=== PATIENT | female | born 1945 | race Caucasian/White ===

== ENCOUNTER 2016-06-08 07:05 | Day surgery (SDC) | payer MEDICARE, OTHER ==
[~2016-06-08] VITALS: Ht 157.5 cm; Wt 59.1 kg
[~2016-06-08 07:05] MED LIST: ANTI1COM3 PO; CALC-786 PO; CETI10CA PO; CLOB15OI TOP; ESTR10TA VG; FEXO1TAB7 PO; FOL1 PO; HYDR25TA67 PO; Lactated Ringer's 1,000 ML IV ONE; METHOTREX PO; MULT-885 PO; MYCO500T3 PO; PRED50TA PO; ZAN150T PO
[2016-06-08] MEDS ORDERED: fentaNYL-PF 50 mCg/mL 2 mL Inj ONE (07:06)
[2016-06-08] MEDS ORDERED: Propofol 10,000 mCg/mL 20 mL Inj ONE (07:06)
--- NOTE | 2016-06-08 07:07 | PCM.HPANE ---
Patient Data Surgeon Admitting Provider: Attending Provider:Huan Cabrera MD Primary Care Physician:Angelina West MD Other Provider:[facility] Anesthesia Reason for Visit Lower Gi Bleeding Ht/WT & BMI Body Mass Index Allergies Coded Allergies: Contrast Media (Verified Allergy, Severe, INTENSE PAIN , 06/26/12) amoxicillin (Verified Allergy, Severe, SEVERE RASH - TOTAL BODY, 06/26/12) aspirin (Verified Allergy, Severe, NOSE BLEEDS AND BRUISING ON A LOW DOSE EVEN, 06/26/12) indomethacin (Verified Allergy, Severe, RASH, 06/26/12) indomethacin sodium (Verified Allergy, Severe, RASH, 06/26/12) Sulfa (Sulfonamide Antibiotics) (Verified Allergy, Mild, 06/07/16) cephalexin (Verified Allergy, Mild, 06/07/16) Past Anesthesia History Anesthesia History: Denies:: Abnormal Airway, Anesthesia Reactions, Difficult Intubation, Fam Anesthesia Reaction, Fam Malignant Hypertherm, Malignant Hyperthermia Diabetes History Hx Diabetes?: No MRSA MRSA: No Medications Reported Medications Mycophenolate Mofetil 500 Mg Tablet1,000 Mg PO BID 06/07/16 Estradiol (Vagifem)10 Mcg [id number] Mcg VG three times per week 06/07/16 Clobetasol-Expunged Drug, Do Not Renew! (Temovate 0.05%-Expunged Drug, Do Not Renew!)15 Gm Tube1 Appl TOP BID #15 GM APPLY TO AFFECTED AREA 07/11/12 Mu-Vits-Min Th/Lycopene/Lutein (Centrum Silver Tablet)1 Each Tablet1 Each PO DAILY 06/26/12 Calcium Carb & Cit/Vitamin D3 (Citracal + D Er Tablet)1 Each Tablet.er1 Each PO BID 06/26/12 hyDROXyzine-Expunged Drug, Do Not Renew! 25 Mg [id number] Mg PO Q6H 06/26/12 Discontinued Reported Medications Cetirizine HCl (Zyrtec)10 Mg [id number] Mg PO HS #30 CAPSULE Ref 0 06/07/16 Fexofenadine/Pseudoephedrine ER (Suzan-D 24 Hour)1 Each Tablet1 Tablet PO DAILY PRN For Congestion 06/07/16 Ranitidine 150 MG Tablet (Zantac 150 MG Tablet)150 Mg Tab1 Tab PO BID 06/26/12 Antiox#12/Om3/Dha/Epa/Lut/Zean (Macular Health Combo Pack)1 Each Combo..pkg2 Each PO DAILY 06/26/12 MethoTREXate-Expunged Drug, Do Not Renew! (RheumaTREX-Expunged Drug, Do Not Renew!)2.5 Mg Tablet2.5 Mg PO WEEKLY 06/26/12 Folic Acid-Expunged Drug, Do Not Renew! 1 Mg Tablet1 Mg PO DAILY #30 TAB 06/26/12 PredniSONE-Expunged Drug, Do Not Renew! 50 Mg Pnspjx77 Mg PO DAILY 06/26/12 History HEENT History: Denies:: Abnormal Airway Difficult Intubation Dysphagia Hearing Problem Hx of Heart Problems?: No Hx of Respiratory Problem?: No Neurological History: Denies:: CVA Hx of GI Problems?: Yes Gastrointestinal History: Denies:: Cirrhosis Diverticulitis Gastroesphageal Reflux Hiatal Hernia Rectal Bleeding Musculoskeletal History: Denies:: Joint Replacement Psycho Social History: Denies:: Anxiety Hx Depression Hx Surgeries?: Yes (R/L ROTATOR CUFF, HYSTERECTOMY) Hx Any Other Health Problems?: Yes Hx Diabetes: No Hx Alcohol Use: Yes (1-2 PER DAY) Stop/Bang ABRIL Risk Assessment: Low Risk, <3 Yes Risk Assessment Category Category 1A: Patient has history of documented sleep apnea, and HAS NOT received any narcotic, sedative or anesthesia administration during this stay. Category 1B: Patient has history of documented sleep apnea, and HAS received any narcotic , sedative or anesthesia administration during this stay Category 2: Patient has SUSPECTED Obstructive Sleep Apnea, and HAS received any narcotic , sedative or anesthesia administration during this stay. Category 3: Patient has SUSPECTED Obstructive Sleep Apnea and HAS NOT received narcotic, sedative or anesthesia administration during this stay. Category 4: Outpatient in Procedural Areas with known sleep apnea or who screen positive for High Risk via the STOP/BANG questionnaire. Exam Exam General Appearance: Alert, Oriented X3, Cooperative, No Acute Distress HEENT/AIRWAY: MP 2 Lungs: Clear to Auscultation, Normal Air Movement Heart: Exam Unremarkable, Regular Rate/Rhythm, No Murmurs/Rubs/Gallops Plan Impression Patient chart reviewed, patient interviewed and anesthestic plan with risks, benefits, and alternatives discussed, and informed consent obtained. ASA Physical Status: ASA2 Mod Systemic Disease Anesthetic Plan: MAC Bene/Risks/Altern/Consents: Yes HP Complete Prior to Induction: Yes Erich Dominguez MD Jun 08, 2016 07:07
[2016-06-08 07:46] VITALS: BP 128/79; RESP 12; O2SAT 95
[2016-06-08] MEDS ORDERED: Lactated Ringer's 1,000 ML IV SCH (08:20)
[2016-06-08] MEDS ORDERED: MetoCLOpramide 5 mg/mL 2 mL Inj IVPUSH PRN (08:20)
[2016-06-08] MEDS ORDERED: Ondansetron 2 mg/mL 2 mL Inj IVPUSH PRN (08:20)
--- NOTE | 2016-06-08 08:20 | PCM.ANEP1 ---
Post Anesthesia Phase 1 PACU Phase 1 Assessment Vital Signs Vital Signs Date Time Temp Pulse Resp B/P Pulse Ox O2 Delivery O2 Flow Rate FiO2 06/08/16 07:46 36.5 12 128/79 95 Room Air Anesthetic Administered: MAC Level of Alertness: Awake, talking TAVERA's with Equal Strength: Yes Pain: No Nausea or Vomiting: No Oxygen Delivery: Nasal Cannula Lungs: Clear to Auscultation, Normal Air Movement Erich Dominguez MD Jun 08, 2016 08:20
[2016-06-08 08:25] VITALS: BP 120/70; PULSE 59; RESP 14; O2SAT 96
[2016-06-08 08:37] VITALS: BP 112/65; PULSE 60; RESP 16; O2SAT 99
--- NOTE | 2016-06-08 09:19 | PCM.ANEP2 ---
Post Anesthesia Evaluation ASA/CMS Post Anesthesia VS in Patient's Normal Range?: Yes Resp Stable; Airway Patent?: Yes CV Function & Hydration Stable: Yes Mental Status Recovered?: Yes Pain control Satisfactory?: Yes N/V Control Satisfactory?: Yes Erich Dominguez MD Jun 08, 2016 09:19
--- NOTE | 2016-06-08 09:48 | ENDO ---
[address] [address] ENDOSCOPY PROCEDURE PATIENT: JUNIE ELLIOTT : 1945 MR#: [id number] ADMIT: 06/08/2016 JOB ID: [id number] DATE OF SERVICE: 06/08/2016 PREOPERATIVE DIAGNOSIS: Rectal bleeding. POSTOPERATIVE DIAGNOSIS: Normal colonoscopy to cecum. OPERATION: Colonoscopy to cecum. SURGEON: Huan Cabrera MD. INDICATION: A 71-year-old female who has had rectal bleeding. She is here for colonoscopy. FINDINGS: She had a good prep. The scope was advanced to the cecum. It was withdrawn over 12 minutes. There were no abnormalities. The cecal landmarks identified including the appendiceal orifice, which was photographed. The terminal ileum was not intubated. The retroflexed views of the rectum were normal. There was no evidence of diverticulosis, inflammatory disease, ulcers, or neoplasia. DESCRIPTION OF PROCEDURE: The procedure and sedation plan was discussed with the patient and nursing staff, and a procedural time-out was held. Dr. Erich Dominguez provided anesthesia. A digital rectal exam was performed and then, the Olympus PCF-H190L video colonoscope was passed transorally, advanced to the cecum, withdrawn over 12 minutes with results as stated above. No biopsies were taken. Retroflexed views of the rectum were obtained. IMPRESSION: Normal colonoscopy to cecum. The explanation for rectal bleeding is not identified. Should she have continued rectal bleeding, consider upper endoscopy and capsular endoscopy. She needs a colonoscopy for screening in 10 years.
== END 2016-06-08 23:59 | disposition home or self-care (01) ==
LOC: END 07:05
PROVIDERS: ATTEND Surgery
DX: K62.5 Hemorrhage of anus and rectum (principal); Z86.010 Personal history of colon polyps
CPT/HCPCS: 45378; J2250; J3010; J7120

== ENCOUNTER 2016-09-18 06:34 | Emergency (ER) | payer MEDICARE, OTHER ==
[~2016-09-18] VITALS: Ht 157.5 cm; Wt 59.1 kg
[~2016-09-18 06:34] MED LIST changes: -ANTI1COM3 PO; -CETI10CA PO; -FEXO1TAB7 PO; -FOL1 PO; -Lactated Ringer's 1,000 ML IV ONE; -METHOTREX PO; -PRED50TA PO; -ZAN150T PO
[2016-09-18 06:38] VITALS: BP 134/76; PULSE 68; RESP 16; O2SAT 98
--- NOTE | 2016-09-18 06:42 | ED.REPORT ---
HPI-Back Pain 40 and Over Date of Service Sep 18, 2016 ED Provider: Lyssa Hannon MD Pt is a 71 year old female with a history of intermittent chronic back pain and scoliosis who presents to the ED complaining of worsening, non-radiating lumbar back pain onset 2 weeks ago. She c/o associated stress. She denies numbness, tingling, dysuria, and any other symptoms. The pt reports that she presented to [facility] and was prescribed Flexeril. Pt states that the medication provided significant relief until yesterday. Pt denies injury, but she reports that she has been packing to move this week. She took Flexeril this morning without relief. Nursing Notes Stated Complaint: LOWER BACK PAIN Chief Complaint: Back Pain or Injury Nursing Notes Reviewed: Yes Allergies: Coded Allergies: Contrast Media (Verified Allergy, Severe, INTENSE PAIN , 06/26/12) amoxicillin (Verified Allergy, Severe, SEVERE RASH - TOTAL BODY, 06/26/12) aspirin (Verified Allergy, Severe, NOSE BLEEDS AND BRUISING ON A LOW DOSE EVEN, 06/26/12) indomethacin (Verified Allergy, Severe, RASH, 06/26/12) Sulfa (Sulfonamide Antibiotics) (Verified Allergy, Mild, 06/07/16) cephalexin (Verified Allergy, Mild, 06/07/16) Scheduled Calcium Carb & Cit/Vitamin D3 (Citracal + D Er Tablet) 1 Each Tablet.er 1 EACH PO BID Clobetasol-Expunged Drug, Do Not Renew! (Temovate 0.05%-Expunged Drug, Do Not Renew!) 15 Gm Tube 1 APPL TOP BID APPLY TO AFFECTED AREA Dexamethasone (Dexamethasone) 4 Mg Tablet 10 MG PO DAILY 10mg on 09/19 and 09/20 Estradiol (Vagifem) 10 Mcg Tablet 10 MCG VG three times per week Mu-Vits-Min Th/Lycopene/Lutein (Centrum Silver Tablet) 1 Each Tablet 1 EACH PO DAILY Mycophenolate Mofetil (Mycophenolate Mofetil) 500 Mg Tablet 1,000 MG PO BID hyDROXyzine-Expunged Drug, Do Not Renew! (hyDROXyzine-Expunged Drug, Do Not Renew!) 25 Mg Tablet 25 MG PO Q6H Scheduled PRN oxyCODONE-Acetaminophen 5-325 mg (oxyCODONE-Acetaminophen 5-325 mg) 1 Each Tablet 1 TAB PO Q6H PRN PRN For Pain General Time Seen by MD: 06:39 Chief Complaint Back pain Hx Obtained From: Patient Arrived By: Walk-in Sudden in Onset?: No Onset Occurred: More than a week ago... (2 weeks) Symptom Duration: Since onset Location: : Perispinal lumbar: Spinal lumbar area Quality: Painful Severity: Current: Moderate Severity: Maximum: Moderate Recent Healthcare: Recent doctor visit Similar Sx Previous: Yes Past Medical History Past Medical History Notes: PCP: Angelina West Past Medical History Autoimmune rash Arthritis - hands Scoliosis - slight Past Surgical History Bilateral shoulder rotator cuff Reports: Hysterectomy, Tonsillectomy Smoking History Unknown if Ever Smoker Social History In process of moving to [place] has lung cancer resulting in pt's stress Alcohol Use: "Social" Drug Use: Denies drug use 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 Psychiatric: Reports: Stress Physical Exam Initial Vital Signs Vital Signs (First) Date Time Temp Pulse Resp B/P Pulse Ox O2 Delivery O2 Flow Rate FiO2 09/18/16 06:38 36.2 68 16 134/76 98 Room Air Initial VS: Reviewed Head / Eyes: Atraumatic, Normocephalic Neck: Supple, Full range of motion Skin: Warm, Dry, No cyanosis Psychiatric: Mood/affect normal, Behavior normal General/Constitutional: Awake, Alert, Cooperative, Not toxic appearing Respiratory / Chest: Atraumatic, Breath sounds NL, Breath sounds = bilat Cardiovascular: Heart rate NL, Regular rhythm, Heart sounds NL Abdomen: Atraumatic, Soft, Non-tender Back: Atraumatic No bony tenderness Neurologic: Oriented X3, Speech NL, No motor deficits, No sensory deficits Lower Extremity / Pelvis / MS: Neurologic intact, Vascular intact 4+ reflexes in both knees Upper Extremity / MS: Neurologic intact, Vascular intact 4+ reflexes in upper extremities Re-Eval/Medical Decision Source of Hx: Old records Re-Evaluation/Progress #1: Time of Eval: 06:57 Re-Evaluation/Progress Note: Pt rechecked. Informed pt of plan for treatment and discharge. Pt understands and agrees with plan for treatment and discharge. F/U instructions and RTER warnings given. All questions addressed. Re-Evaluation/Progress #2: Time of Eval: 08:09 Patient Status: Condition improved Counseled Regarding: Diagnosis, Need for follow-up, When/why to return to ED Discharge & Departure Impression: Primary Impression: Low back pain Chronicity: chronic Back pain laterality: unspecified Sciatica presence: unspecified whether sciatica present Qualified Code: M54.5 - Low back pain Disposition: Home Discharge Condition All VS Reviewed: Yes Condition: Stable Additional Instructions: You have an acute back strain and no concerning signs for more severe back issues. No concerns for infection, tumors, fractures, or anything needing surgical intervention. You likely are going to be better in a number of weeks regardless of what I do today, but I can probably help make you feel better. You do need to continue to be very careful with lifting, bending or twisting. I know that is such an easy task to accomplish when you are in the middle of a big move. For 09/19 and 09/20 I want you to take 10 mg of Decadron, a powerful steroid/anti- inflammatory. Do not take ibuprofen and Aleve or aspirin while taking Decadron. Once you are done with the Decadron,you can again return to using ibuprofen or Aleve. Take 1 Percocet every 6 hours as needed for severe pain. Do not drive or drink alcohol or consume acetaminophen while taking Percocet. You can continue to use the cyclobenzaprine that you have at home for muscle relaxation. I hope this helps, and I hope the rest of your move goes well. Referrals: Angelina West MD (PCP) Caioibjoseluis Attestation Portions of this note were transcribed by Pat Mtz. I, Dr. Hannon personally performed the history, physical exam and medical decision-making; I reviewed and confirmed the accuracy of the information in the transcribed note. Signed by: Javier Morillo, 09/18/16 and 07:20. copies to: Angelina West MD, Shawna L MD Sep 18, 2016 06:42 Pat Oliva Sep 18, 2016 06:54
[2016-09-18] MEDS ORDERED: oxyCODONE-Acetamin 5-325 mg Tablet PO ONE (06:55)
[2016-09-18 08:03] VITALS: BP 127/64; PULSE 51; RESP 16; O2SAT 96
[2016-09-18] MEDS ORDERED: OXYC1TAB24 PO (08:21)
[2016-09-18] MEDS ORDERED: DXM4T PO (08:21)
[2016-09-18 08:38] VITALS: BP 129/73; PULSE 53; O2SAT 97
== END 2016-09-18 08:36 | disposition home or self-care (01) ==
LOC: SED 06:34
DX: M54.5 Low back pain (principal); F43.9 Reaction to severe stress, unspecified; M41.9 Scoliosis, unspecified; Z91.041 Radiographic dye allergy status; Z88.1 Allergy status to other antibiotic agents; Z88.8 Allergy status to other drugs, medicaments and biological substances; Z88.2 Allergy status to sulfonamides
CPT/HCPCS: 96372; 99283; J1885